=== PATIENT | female | born 2000 | race African-American/Black ===

== ENCOUNTER 2022-11-17 22:42 | Emergency (ER) | payer MEDICAID ==
[2022-11-17] MEDS ORDERED: Lactated Ringers 1,000 ML IV ONE (22:59)
[2022-11-17] MEDS ORDERED: Sodium Chloride 0.9% 10 ML Syringe FLUSH PRN (22:59)
[2022-11-17] MEDS ORDERED: Metoclopramide 10 MG/2 ML SDV IVPUSH ONE (22:59)
[2022-11-17] MEDS ORDERED: Ketorolac 15 MG/ML SDV IVPUSH ONE (23:17)
[2022-11-17 23:26] LABS: ANION GAP 12.2 mmol/L (5-15)
[2022-11-17 23:43] LABS: CORONAVIRUS COVID-19 NAA NEGATIVE (NEGATIVE); RESPIRATORY SYNCYTIAL VIR NAA NEGATIVE (NEGATIVE)
== END 2022-11-17 23:55 | disposition home or self-care (01) ==
LOC: VM.ED 22:42
DX: K52.9 Noninfective gastroenteritis and colitis, unspecified (principal); Z20.822 Contact with and (suspected) exposure to COVID-19
CPT/HCPCS: 0241U; 80053; 83735; 84100; 85025; 96361; 96374; 96375; 99284; J1885; J2765; J7120